=== PATIENT | female | born 1945 | race African-American/Black ===

== ENCOUNTER 2017-04-16 07:58 | Emergency (ER) | payer MEDICAID ==
[~2017-04-16] VITALS: Ht 162.6 cm; Wt 58.0 kg
[2017-04-16] MEDS ORDERED: VITAMINS (08:15)
[2017-04-16] MEDS ORDERED: METHYLPREDNISOLONE SOD SUCC 125 MG/2 ML VIAL IV ONE (09:00)
[2017-04-16] MEDS ORDERED: DIPHENHYDRAMINE 50MG CAPSULE PO ONE (09:00)
[2017-04-16 09:15] LABS: BASOPHILS % 0.3 % (0.0-2.0); EOSINOPHILS % 0.7 % (0.0-5.0); HEMATOCRIT. 42.5 % (36.0-48.0); HEMOGLOBIN. 14.4 g/dL (12.0-16.0); LYMPHOCYTES % 18.3 % (20.0-50.0); MEAN CORPUSCULAR HEMOGLOBIN 31.7 pg (28.0-32.0); MEAN CORPUSCULAR VOLUME 93.5 fL (81.0-99.0); MEAN PLATELET VOLUME 8.6 fl (7.4-10.4); MONOCYTES % 3.7 % (2.0-8.0); PLATELET 246 x1000/uL (130-400); RED BLOOD CELL COUNT 4.54 mill/uL (4.2-5.4); RED CELL DISTRIBUTION WIDTH 13.7 % (11.6-14.6)
[2017-04-16 09:32] LABS: CARBON DIOXIDE 32 mEq/L (21-32); CHLORIDE 103 mEq/L (98-107)
[2017-04-16 12:15] VITALS: BP 135/76
== END 2017-04-16 12:16 | disposition home or self-care (01) ==
LOC: ER 08:24
DX: T78.3XXA Angioneurotic edema, initial encounter (principal); Y92.89 Other specified places as the place of occurrence of the external cause
CPT/HCPCS: 36415; 70360; 80053; 85025; 96374; 99285; J2930; Z7610; Q0163

== ENCOUNTER 2021-08-04 21:46 | Emergency (ER) | payer MEDICAID, OTHER ==
[~2021-08-04] VITALS: Ht 162.6 cm; Wt 58.0 kg
[~2021-08-04 21:46] MED LIST: VITAMINS
[2021-08-04 22:25] LABS: CHLORIDE 104 mEq/L (98-107)
[2021-08-04 22:29] LABS: BASOPHILS % 0.3 % (0.0-2.0); EOSINOPHILS % 0.5 % (0.0-5.0); HEMATOCRIT. 37.9 % (36.0-48.0); LYMPHOCYTES % 28.8 % (20.0-50.0); MEAN CORPUSCULAR HEMOGLOBIN 31.7 pg (28.0-32.0); MEAN CORPUSCULAR VOLUME 92.1 fL (81.0-99.0); MEAN PLATELET VOLUME 8.5 fl (7.4-10.4); MONOCYTES % 7.4 % (2.0-8.0); PLATELET 268 x1000/uL (130-400); RED BLOOD CELL COUNT 4.12 mill/uL (4.2-5.4); RED CELL DISTRIBUTION WIDTH 13.4 % (11.6-14.6)
[2021-08-04] MEDS: ADENOSINE 3 MG/ML 2ML VIAL IV ONE ×2 (22:50→23:31)
[2021-08-05 02:13] VITALS: BP 135/69
== END 2021-08-05 02:14 | disposition home or self-care (01) ==
LOC: ER 21:46
DX: I47.1 Supraventricular tachycardia (principal)
CPT/HCPCS: 36415; 71045; 80053; 83880; 84484; 85025; 93005; 99291; J0153